=== PATIENT | male | born 1985 | race Caucasian/White ===

== ENCOUNTER 2017-03-30 10:11 | Outpatient (CLI) | payer OTHER | END 2017-03-30 10:12 | disposition home or self-care (01) | LOC: SC 10:11 | PROVIDERS: ATTEND Nurse Practitioner Family | DX: G47.30 Sleep apnea, unspecified (principal); G47.10 Hypersomnia, unspecified; R06.83 Snoring; G47.8 Other sleep disorders | CPT/HCPCS: 99203; 99204; 99212 ==

== ENCOUNTER 2017-08-03 13:36 | Outpatient (CLI) | payer OTHER | END 2017-08-03 13:37 | disposition home or self-care (01) | LOC: SC 13:36 | PROVIDERS: ATTEND Nurse Practitioner Family | DX: G47.31 Primary central sleep apnea (principal) | CPT/HCPCS: 99212; 99214 ==

== ENCOUNTER 2017-12-29 09:41 | Outpatient (CLI) | payer OTHER | END 2017-12-29 09:42 | disposition home or self-care (01) | LOC: SC 09:41 | PROVIDERS: ATTEND Nurse Practitioner Family | DX: G47.33 Obstructive sleep apnea (adult) (pediatric) (principal) | CPT/HCPCS: 99212; 99214 ==

== ENCOUNTER 2018-10-02 09:29 | Outpatient (CLI) | payer OTHER | END 2018-10-02 09:30 | disposition home or self-care (01) | LOC: SC 09:29 | PROVIDERS: ATTEND Internal Medicine Pulmonary Disease | DX: G47.31 Primary central sleep apnea (principal) | CPT/HCPCS: 99212; 99213 ==

== ENCOUNTER 2019-03-16 19:35 | Outpatient (CLI) | payer OTHER | END 2019-03-16 19:36 | disposition home or self-care (01) | LOC: SC 19:35 | PROVIDERS: ATTEND Internal Medicine Pulmonary Disease | DX: G47.31 Primary central sleep apnea (principal) | CPT/HCPCS: 95811 ==

== ENCOUNTER 2019-03-27 13:38 | Outpatient (CLI) | payer OTHER ==
[2019-03-27 15:08] VITALS: BP 120/80
--- NOTE | 2019-03-27 15:08 | SLEEP CARE CONSULTATION ---
Information from patient questionnaire entered by Cara Veliz. I have reviewed and concur with the information entered by Cara Veliz. This document represents the service I personally performed and the decisions made by me, Shanae Demarco, RN, MSN, GROUP CONTRACT ANALYST. History of Present Illness Initial Era Sleepiness Scale score: 14 Current Era Sleepiness Scale score: 16 Additional HPI information: [facility] returns for follow up of the recently performed manual titration study and informed of the findings. Patient was started on CPAP in late 2017 and has been using spordically due to discomfort of pressure. Thus a titration study was ordered. Patient states he slept the best he had with CPAP previously and the longest. I explained the pathophysiology behind central sleep apnea but due to events being primarily in supine position in REM sleep at diagnosis it is probably more likelyh obstructive sleep apnea as noted on diagnostic test. After some discussion, the patient opted to restart the nasal CPAP therapy. Nasal autoCPAP set at 7cmH20 will be ordered as noted in report. Using CPAP every night and with all sleep , including naps in order to get used to it was emphasized. Patient advised to put CPAP mask on before getting into bed so as not to fall asleep without CPAP. To assist acclimation to CPAP use, it could also be used for a short time during day while reading or watching TV. He really liked the mask used at the study better than current mask. Thus an order was written for his preference. He obtained his CPAP from [place] but no further supplies. So I will have my proposal coordinator given him the contact numbers to contact [place] for updaing supplies and the prescription will also be sent. The patient was instructed to call the CPAP supplier to discuss any mechanical problem that may occur. If snoring or perceives is not getting enough air or too much air from the machine, notify this office. [facility] patient education PAP tips pamphlets reviewed and given to patient. I also reviewed how to adjust the humidity and heated hose for comfort and printed Res Med instructions given. Patient counseled not drink alcohol less than 4 hours before bedtime as it can increase snoring and apnea. Patient does not drink alcohol. Patient was cautioned about risks of drowsy driving until sleepiness symptoms resolve. Patient denies drowsy driving. Allergies and Home Medications Known drug allergies: No Home medication list reviewed: Yes Allergy and home medication list: clonazepam 0.5mg prn anxiety omeprazole 20mg daily Review of Systems Review of systems same as previous: Yes Physical Exam Blood Pressure: 120/80 Cuff size: long Heart Rate: 93 O2 Saturation: 98 Height: 5 ft 10 in Weight: 245 lb 12.8 oz Body Mass Index: 35.2 BMI Classification: Obesity Class 2 Impression and Plan 1. ObstructiveCentral Sleep Apnea-Hypopnea Syndrome, severe, adequately controlled with 7cmH20. Obviously this is the cause of the patients symptoms of unrefreshed sleep, and excessive daytime sleepiness as patient felt much more rested the day after his titration study. As noted above, he will restart his CPAP tonight with new pressure adjustment. I also reviewed how to get CPAP supply replacements and to get the mask of choice. He feels that the previous mask was part of his difficulty using CPAP before. In addition, I showed him how to adjust the humidity and heated hose to comfort. I explained how positive pressure therapy could benefit his anxiety and gerd. Because the apnea is more severe supine, I instructed to avoid sleeping supine using pillow positioning if unable to use CPAP . * Nasal auto CPAP therapy, pressure at 7 cm H2O. * Mask specific RX * Attempt to lose weight. * Avoid alcohol consumption near bedtime. * Avoid supine sleep until using CPAP. * The patient is again cautioned about driving until sleepiness completely resolves. * Return 1-2 months. I will assess response to therapy and compliance at that time. I spent 100% of this 43 minute visit face to face with the patient with greater than 50% of this was spent time counseling the patient and coordination of care.
== END 2019-03-27 13:39 | disposition home or self-care (01) ==
LOC: SC 13:38
PROVIDERS: ATTEND Nurse Practitioner Family
DX: G47.33 Obstructive sleep apnea (adult) (pediatric) (principal); G47.31 Primary central sleep apnea
CPT/HCPCS: 99212; 99215